=== PATIENT | male | born 1960 | race American Indian/Alaskan Native ===

== ENCOUNTER 2017-08-17 08:44 | Outpatient (CLI) | payer BC ==
--- NOTE | 2017-08-17 14:29 | Nuclear Medicine Report ---
Whole body bone scan: Prostate malignancy. Following injection of radionuclide whole-body bone imaging was obtained approximately 3 hours. Normal urinary tract activity is noted with good bone to background ratio. Focally intense areas of radionuclide uptake are identified in the region of the first right thoracic transverse process, left second or third process, lateral right third rib, left 12 pedicle and anterior left fifth rib. A focal area of questionable abnormal uptake noted in the posterior right L4 body and right proximal femur. Nonspecific areas of mild uptake identified in both knees and right first MP joint. Impressions: Multiple abnormal foci of radionuclide uptake consistent with metastatic disease.
--- NOTE | 2017-08-17 14:42 | Cat Scan Report ---
CT ABDOMEN AND PELVIS WITHOUT IV CONTRAST INDICATION: Malignant neoplasm of prostate. COMPARISON: None similar. FINDINGS: Abdomen and pelvis CT performed following oral contrast only. LUNG BASES: Mild nonspecific distal esophageal wall prominence/thickening, not excluded for gastroesophageal reflux and/or hiatal hernia, amongst others. ABDOMEN: Please note that sensitivity to detect small visceral lesions is limited due to the absence of intravenous contrast. A small hepatic calcified granuloma. Otherwise grossly unremarkable unenhanced liver, spleen, gallbladder, pancreas, adrenals, aorta, IVC and kidneys. A retroaortic left renal vein incidentally seen. No ascites or definite size significant adenopathy. Opacified GI tract nonobstructive. Mild to moderate colonic stool/possible constipation. PELVIS: Non-opacified urinary bladder suboptimally distended and assessed. Grossly normal prostate size. Few small pelvic phleboliths. Unremarkable rectosigmoid. No free fluid or definite significant adenopathy. Multilevel spinal degenerative changes as spurring. L4-L5 and L5-S1 moderate to severe disc narrowing with endplate irregularities noted. Bilateral SI joint degenerative bridging with partial joint space obliteration superiorly on the right. Mild bilateral hip degenerative changes. Possible osteopenia. CONCLUSION: Various incidental findings, as above. Thank you for the opportunity to participate in this patient's care.
== END 2017-08-17 08:45 | disposition home or self-care (01) ==
LOC: NM 08:44
PROVIDERS: ATTEND Urology
DX: C61 Malignant neoplasm of prostate (principal); K75.3 Granulomatous hepatitis, not elsewhere classified; M48.07 Spinal stenosis, lumbosacral region; I87.8 Other specified disorders of veins; M46.00 Spinal enthesopathy, site unspecified; M16.0 Bilateral primary osteoarthritis of hip
CPT/HCPCS: 74176; 78306; A9503